=== PATIENT | female | born 1945 | race Two or more races ===

== ENCOUNTER 2018-09-15 12:03 | Outpatient (CLI) | payer OTHER | END 2018-09-15 12:06 | disposition home or self-care (01) | LOC: RAD 12:03 | DX: J20.8 Acute bronchitis due to other specified organisms (principal) ==

== ENCOUNTER 2018-09-18 12:53 | Outpatient (CLI) | payer OTHER | END 2018-09-18 17:07 | disposition home or self-care (01) | LOC: RAD 12:53 | DX: S42.301A Unspecified fracture of shaft of humerus, right arm, initial encounter for closed fracture (principal) ==

== ENCOUNTER → 2018-10-09 | Emergency (ER) | payer OTHER ==
[~2018-10-09] VITALS: Ht 165.1 cm; Wt 66.7 kg
[~2018-10-09] MED LIST: AMBIEN10 MG PO; AVAPRO300 MG PO; OMEPRAZOLE20 MG PO; SUCRALFATE1 GM PO
== END | disposition left against medical advice (07) ==
LOC: ER 22:19
DX: Z53.20 Procedure and treatment not carried out because of patient's decision for unspecified reasons (principal)

== ENCOUNTER 2022-12-23 19:17 | Emergency (ER) | payer OTHER ==
[~2022-12-23] VITALS: Ht 165.1 cm; Wt 72.6 kg
== END 2022-12-23 22:03 | disposition home or self-care (01) ==
LOC: ER 19:17
DX: R07.9 Chest pain, unspecified (principal); Z88.6 Allergy status to analgesic agent

== ENCOUNTER 2024-09-16 12:39 | Emergency (ER) | payer OTHER ==
[~2024-09-16] VITALS: Ht 157.5 cm; Wt 63.5 kg
[2024-09-16] MEDS ORDERED: RINGERS SOLUTION,LACTATED 1,000 ML IV STA (14:02)
[2024-09-16] MEDS ORDERED: FAMOtidine 10 MG/ML (4ML VIAL) IV STA (14:04)
[2024-09-16] MEDS ORDERED: ONDANSETRON HCL 2 MG/ML VIAL IV ONE (14:15)
[2024-09-16 14:56] LABS: HEMATOCRIT 39.1 % (36.0-45.00); HEMOGLOBIN 13.2 g/dL (12.0-15.00); MEAN CELL VOLUME 72.8 fL (80.00-100.00); MEAN CORPUSCULAR HEMOGLOBIN 24.6 pg (27.00-32.0); MEAN CORPUSCULAR HGB CONC 33.7 g/dl (32.0-36.0); PLATELET COUNT 413 K/uL (150-450); RED BLOOD COUNT 5.37 M/uL (4.00-6.00); RED CELL DISTRIBUTION WIDTH 18.3 % (11.5-14.5)
[2024-09-16 15:06] LABS: ALBUMIN 3.5 gm/dL (3.4-5.0); BILIRUBIN TOTAL 0.57 mg/dL (0.3-1.2); BILIRUBIN,CONJUGATED 0.13 mg/dL (0.0-0.2); BILIRUBIN,UNCONJUGATED 0.44 mg/dL (0.0-0.6); CALCIUM 9.4 mg/dL (8.5-10.1); CREATININE SERUM 0.8 mg/dL (0.55-1.02); GFR 69.37; POTASSIUM 4.49 mEq/L (3.5-5.1); TOTAL PROTEIN 7.6 gm/dL (6.4-8.2)
[2024-09-16 16:45] LABS: URINE APPEARANCE Clear; URINE BILIRRUBIN Negative (NEGATIVE); URINE BLOOD Negative; URINE COLOR Yellow; URINE GLUCOSE Negative (NEGATIVE); URINE KETONE Trace (NEGATIVE); URINE LEUKOCYTE Trace; URINE NITRATE Negative; URINE PROTEIN Trace (NEGATIVE); URINE UROBILINOGEN 0.2 E.U./dl
[2024-09-16 16:50] LABS: URINE BACTERIA 358.9 uL (0.0-1933); URINE EPITHELIAL CELLS 11.2 uL (0.0-38.8); URINE RBC 18.7 uL (0.0-20.8); URINE WBC 15.9 uL (0.0-23.2)
== END 2024-09-16 19:06 | disposition home or self-care (01) ==
LOC: ER 12:39
PROVIDERS: General Practice
DX: K52.89 Other specified noninfective gastroenteritis and colitis (principal); E86.0 Dehydration; R10.9 Unspecified abdominal pain; I10 Essential (primary) hypertension; Z88.6 Allergy status to analgesic agent
CPT/HCPCS: 36415; 96365; 99282; J2405; J3490